=== PATIENT | male | born 1945 | race Caucasian/White ===

== ENCOUNTER 2020-12-09 11:32 | Inpatient (IN) | payer MEDICARE, MEDICAID ==
[~2020-12-09] VITALS: Ht 177.8 cm; Wt 55.8 kg
[2020-12-09] MEDS ORDERED: SODIUM CHLORIDE 0.9% 1,000 ML IV ONE (12:15)
[2020-12-09 12:22] LABS: BASOPHILS % 0.7 % (0.0-2.0); HEMATOCRIT. 58.4 % (42.0-52.0); HEMOGLOBIN. 19.8 g/dL (14.0-18.0); LYMPHOCYTES % 26.9 % (20.0-50.0); MEAN CORPUSCULAR HEMOGLOBIN 31.7 pg (28.0-32.0); MEAN CORPUSCULAR VOLUME 93.8 fL (80.0-94.0); MEAN PLATELET VOLUME 9.1 fl (7.4-10.4); MONOCYTES % 8.3 % (2.0-8.0); NEUTROPHILS % 63.1 % (40.0-76.0); PLATELET 239 x1000/uL (130-400); RED BLOOD CELL COUNT 6.23 mill/uL (4.7-6.1); RED CELL DISTRIBUTION WIDTH 14.4 % (11.6-14.6)
[2020-12-09 12:30] LABS: CHLORIDE 104 mEq/L (98-107)
[2020-12-09 13:55] LABS: INR 1.1; PROTHROMBIN TIME 11.9 sec (9.6-11.0)
[2020-12-09 14:33] LABS: CLARITY URINE CLEAR (CLEAR); COLOR URINE DARK YELLOW (YELLOW); KETONES URINE 3+ (NEGATIVE); LEUKOCYTE ESTERASE URINE NEGATIVE (NEGATIVE); NITRITE URINE NEGATIVE (NEGATIVE); OCCULT BLOOD URINE NEGATIVE (NEGATIVE); PH URINE 5.5 (4.5-8.0); PROTEIN URINE 1+ (NEGATIVE); SPECIFIC GRAVITY URINE 1.028 (1.005-1.030)
[2020-12-09 15:08] LABS: *AMPHETAMINES SCREEN URINE NEGATIVE (NEGATIVE); *BARBITURATES SCREEN URINE NEGATIVE (NEGATIVE); *BENZODIAZEPINES SCREEN URINE NEGATIVE (NEGATIVE); *COCAINE SCREEN URINE NEGATIVE (NEGATIVE); METHADONE URINE SCREEN NEGATIVE (NEGATIVE)
[2020-12-09 15:09] LABS: CANNABINOID URINE SCREEN NEGATIVE (NEGATIVE); OPIATES URINE SCREEN NEGATIVE (NEGATIVE); PHENCYCLIDINE URINE SCREEN NEGATIVE (NEGATIVE)
[2020-12-09] MEDS ORDERED: DOCUSATE SODIUM 100MG CAPSULE PO PRN (16:00)
[2020-12-09] MEDS ORDERED: MAGNESIUM/ALUMINUM HYDROXIDE/SIMETHICONE 30ML UDC PO PRN (16:00)
[2020-12-09] MEDS ORDERED: ACETAMINOPHEN 325MG TABLET PO PRN (16:00)
[2020-12-09] MEDS ORDERED: ONDANSETRON HCL 4MG/2ML INJ IV PRN (16:00)
[2020-12-09] MEDS ORDERED: CLONIDINE 0.1MG TABLET PO PRN (16:00)
[2020-12-09] MEDS ORDERED: LORAZEPAM 2MG/ML CPJ IV PRN (16:00)
[2020-12-09] MEDS ORDERED: LORAZEPAM 2MG/ML CPJ IM ONE (16:15)
[2020-12-09] MEDS: DEXT 5%/0.45% NACL 1000ML 1,000 ML IV SCH (16:15)
[2020-12-09] MEDS: ENOXAPARIN 40MG/0.4ML SYR SUBCUT SCH (17:33)
[2020-12-09 22:00] VITALS: BP 115/72
[2020-12-10] VITALS: BP 115/91
[2020-12-10 04:00] VITALS: BP 126/77
[2020-12-10 07:32] LABS: BASOPHILS % 0.6 % (0.0-2.0); EOSINOPHILS % 1.7 % (0.0-5.0); HEMOGLOBIN. 17.4 g/dL (14.0-18.0); LYMPHOCYTES % 36.8 % (20.0-50.0); MEAN CORPUSCULAR HEMOGLOBIN 31.3 pg (28.0-32.0); MEAN CORPUSCULAR VOLUME 93.7 fL (80.0-94.0); MEAN PLATELET VOLUME 10.1 fl (7.4-10.4); MONOCYTES % 12.8 % (2.0-8.0); NEUTROPHILS % 48.1 % (40.0-76.0); PLATELET 192 x1000/uL (130-400); RED BLOOD CELL COUNT 5.55 mill/uL (4.7-6.1); RED CELL DISTRIBUTION WIDTH 14.6 % (11.6-14.6)
[2020-12-10 07:54] LABS: CHLORIDE 107 mEq/L (98-107)
[2020-12-10 08:00] VITALS: BP 132/91
[2020-12-10 08:04] LABS: LDL CHOLESTEROL 115 mg/dL (5-100)
[2020-12-10 08:06] LABS: HDL CHOLESTEROL 39 mg/dL (40-59); T4 FREE 1.21 ng/dL (0.76-1.46)
[2020-12-10] MEDS: ASPIRIN 81MG EC TABLET PO SCH (08:45)
[2020-12-10] MEDS: FOLIC ACID 1MG TABLET PO SCH (08:45)
[2020-12-10] MEDS: THIAMINE HCL 100MG TABLET PO SCH (08:46)
[2020-12-10] MEDS: MULTIVITAMINS,THER W-MINERALS TABLET PO SCH (08:46)
[2020-12-10] MEDS ORDERED: LORAZEPAM 2MG/ML CPJ IM PRN (10:45)
[2020-12-10] MEDS: LORAZEPAM 2MG/ML CPJ IV PRN (13:57)
[2020-12-10 16:36] VITALS: BP 144/88
[2020-12-10] MEDS: ENOXAPARIN 40MG/0.4ML SYR SUBCUT SCH (17:01)
[2020-12-10] MEDS ORDERED: POTASSIUM CHLORIDE 20MEQ TABLET SR PO NR (18:45)
[2020-12-10] MEDS: DEXT 5%/0.45% NACL 1000ML 1,000 ML IV SCH (19:15)
[2020-12-10 20:00] VITALS: BP 126/78
[2020-12-11] VITALS: BP 139/86
[2020-12-11] MEDS: LORAZEPAM 2MG/ML CPJ IV PRN (00:52)
[2020-12-11 04:00] VITALS: BP 121/71
[2020-12-11 07:48] LABS: BASOPHILS % 0.7 % (0.0-2.0); EOSINOPHILS % 1.6 % (0.0-5.0); HEMATOCRIT. 53.8 % (42.0-52.0); HEMOGLOBIN. 17.8 g/dL (14.0-18.0); MEAN CORPUSCULAR HEMOGLOBIN 31.4 pg (28.0-32.0); MEAN CORPUSCULAR VOLUME 94.8 fL (80.0-94.0); MEAN PLATELET VOLUME 10.3 fl (7.4-10.4); MONOCYTES % 8.9 % (2.0-8.0); NEUTROPHILS % 55.8 % (40.0-76.0); PLATELET 171 x1000/uL (130-400); RED BLOOD CELL COUNT 5.68 mill/uL (4.7-6.1); RED CELL DISTRIBUTION WIDTH 14.8 % (11.6-14.6)
[2020-12-11 07:56] LABS: CHLORIDE 109 mEq/L (98-107)
[2020-12-11 08:00] VITALS: BP 153/92
[2020-12-11] MEDS: DEXT 5%/0.45% NACL 1000ML 1,000 ML IV SCH (08:15)
[2020-12-11] MEDS: FOLIC ACID 1MG TABLET PO SCH (08:52)
[2020-12-11] MEDS: ASPIRIN 81MG EC TABLET PO SCH (08:52)
[2020-12-11] MEDS: THIAMINE HCL 100MG TABLET PO SCH (08:52)
[2020-12-11] MEDS: MULTIVITAMINS,THER W-MINERALS TABLET PO SCH (08:52)
[2020-12-11 11:40] VITALS: BP 149/99
[2020-12-11] MEDS: CLOPIDOGREL 75MG TABLET PO SCH (12:40)
[2020-12-11 16:00] VITALS: BP 121/75
[2020-12-11] MEDS: ENOXAPARIN 40MG/0.4ML SYR SUBCUT SCH (17:09)
[2020-12-11 20:00] VITALS: BP 121/71
[2020-12-11] MEDS: AMLODIPINE 5MG TABLET PO SCH (20:39)
[2020-12-11] MEDS ORDERED: ATORVASTATIN CALCIUM 40MG TABLET PO SCH (21:00)
[2020-12-12] VITALS: BP 134/78
[2020-12-12 04:00] VITALS: BP 129/83
[2020-12-12 08:00] VITALS: BP 133/95
[2020-12-12] MEDS: MULTIVITAMINS,THER W-MINERALS TABLET PO SCH (09:04)
[2020-12-12] MEDS: ASPIRIN 81MG EC TABLET PO SCH (09:04)
[2020-12-12] MEDS: FOLIC ACID 1MG TABLET PO SCH (09:04)
[2020-12-12] MEDS: THIAMINE HCL 100MG TABLET PO SCH (09:04)
[2020-12-12] MEDS: CLOPIDOGREL 75MG TABLET PO SCH (09:04)
[2020-12-12] MEDS: AMLODIPINE 5MG TABLET PO SCH (09:05)
[2020-12-12 12:00] VITALS: BP 106/71
[2020-12-12 15:02] VITALS: BP 106/71
[2020-12-12 16:12] VITALS: BP 118/65
[2020-12-12] MEDS: ENOXAPARIN 40MG/0.4ML SYR SUBCUT SCH (17:21)
== END 2020-12-12 17:26 | DRG 64 ==
LOC: ER 12:03 → 5WST 15:00 → EDBEDREQ 15:06 → EDBEDREQTM 15:06 → ENRESERV 20:36
PROVIDERS: ADMIT Hospitalist; ATTEND Hospitalist
DX: I63.9 Cerebral infarction, unspecified (principal); G93.41 Metabolic encephalopathy; Z68.1 Body mass index [BMI] 19.9 or less, adult; E86.0 Dehydration; R62.7 Adult failure to thrive; I10 Essential (primary) hypertension; F03.90 Unspecified dementia, unspecified severity, without behavioral disturbance, psychotic disturbance, mood disturbance, and anxiety; E78.5 Hyperlipidemia, unspecified; Z20.822 Contact with and (suspected) exposure to COVID-19; H54.7 Unspecified visual loss; R63.6 Underweight
CPT/HCPCS: 36415; 70551; 71045; 80053; 80061; 80305; 81003; 82140; 83605; 84145; 84439; 84443; 84484; 85025; 87426; 93005; 99285; C1893; J1650; J2060; J7030

== ENCOUNTER 2021-06-08 23:05 | Inpatient (IN) | payer MEDICARE, MEDICAID ==
[~2021-06-08] VITALS: Ht 153.7 cm; Wt 53.5 kg
[2021-06-08] MEDS ORDERED: SODIUM CHLORIDE 0.9% 1,000 ML IV ONE (23:45)
[2021-06-09] MEDS ORDERED: OLANZAPINE 10 MG/VIAL IM ONE (00:30)
[2021-06-09 00:34] LABS: BASOPHILS % 0.4 % (0.0-2.0); EOSINOPHILS % 2.8 % (0.0-5.0); HEMATOCRIT. 43.7 % (42.0-52.0); MEAN CORPUSCULAR HEMOGLOBIN 32.4 pg (28.0-32.0); MEAN CORPUSCULAR VOLUME 94.3 fL (80.0-94.0); MEAN PLATELET VOLUME 7.7 fl (7.4-10.4); MONOCYTES % 7.7 % (2.0-8.0); NEUTROPHILS % 60.1 % (40.0-76.0); PLATELET 234 x1000/uL (130-400); RED BLOOD CELL COUNT 4.63 mill/uL (4.7-6.1); RED CELL DISTRIBUTION WIDTH 13.9 % (11.6-14.6)
[2021-06-09 00:38] LABS: CLARITY URINE CLEAR (CLEAR); COLOR URINE YELLOW (YELLOW); KETONES URINE NEGATIVE (NEGATIVE); LEUKOCYTE ESTERASE URINE NEGATIVE (NEGATIVE); NITRITE URINE NEGATIVE (NEGATIVE); OCCULT BLOOD URINE 2+ (NEGATIVE); PH URINE 6.5 (4.5-8.0); PROTEIN URINE NEGATIVE (NEGATIVE); SPECIFIC GRAVITY URINE 1.014 (1.005-1.030)
[2021-06-09 00:42] LABS: CHLORIDE 108 mEq/L (98-107)
[2021-06-09] MEDS ORDERED: HALOPERIDOL LACTATE 5MG/ML VIAL IM ONE (02:15)
[2021-06-09] MEDS ORDERED: MAGNESIUM/ALUMINUM HYDROXIDE/SIMETHICONE 30ML UDC PO PRN (07:00)
[2021-06-09] MEDS ORDERED: ONDANSETRON HCL 4MG/2ML INJ IV PRN (07:00)
[2021-06-09] MEDS: LORAZEPAM 2MG/ML CPJ IV PRN ×3 (08:04→21:34)
[2021-06-09] MEDS: DEXT 5%/0.45% NACL 1000ML 1,000 ML IV SCH ×2 (08:05→21:34)
[2021-06-09] MEDS: ENOXAPARIN 40MG/0.4ML SYR SUBCUT SCH (11:15)
[2021-06-09 16:29] VITALS: BP 124/72
[2021-06-09 18:42] LABS: VITAMIN B12 SERUM 528 pg/mL (211-911)
[2021-06-09 20:00] VITALS: BP 135/66
[2021-06-10] VITALS: BP 133/74
[2021-06-10 04:00] VITALS: BP_SYST 133; BP_SYST 142; BP_DIAS 72; BP_DIAS 85
[2021-06-10 06:12] LABS: CHLORIDE 109 mEq/L (98-107)
[2021-06-10 06:18] LABS: BASOPHILS % 0.7 % (0.0-2.0); HEMATOCRIT. 46.2 % (42.0-52.0); HEMOGLOBIN. 15.6 g/dL (14.0-18.0); LYMPHOCYTES % 22.1 % (20.0-50.0); MEAN CORPUSCULAR VOLUME 95.1 fL (80.0-94.0); MONOCYTES % 8.1 % (2.0-8.0); NEUTROPHILS % 67.1 % (40.0-76.0); PLATELET 233 x1000/uL (130-400); RED BLOOD CELL COUNT 4.86 mill/uL (4.7-6.1); RED CELL DISTRIBUTION WIDTH 13.8 % (11.6-14.6)
[2021-06-10 06:22] LABS: LDL CHOLESTEROL 56 mg/dL (5-100)
[2021-06-10 06:23] LABS: HDL CHOLESTEROL 49 mg/dL (40-59)
[2021-06-10 08:00] VITALS: BP 143/74
[2021-06-10] MEDS: DEXT 5%/0.45% NACL 1000ML 1,000 ML IV SCH ×2 (09:49→21:23)
[2021-06-10] MEDS: ENOXAPARIN 40MG/0.4ML SYR SUBCUT SCH ×2 (09:49→10:01)
[2021-06-10 12:00] VITALS: BP 108/64
[2021-06-10] MEDS: LORAZEPAM 2MG/ML CPJ IV PRN ×2 (15:14→20:42)
[2021-06-10 16:00] VITALS: BP 140/80
[2021-06-10 20:00] VITALS: BP 135/80
[2021-06-10] MEDS ORDERED: HALOPERIDOL LACTATE 5MG/ML VIAL IM PRN (20:00)
[2021-06-10] MEDS: ACETAMINOPHEN 325MG TABLET PO PRN (20:42)
[2021-06-10] MEDS: QUETIAPINE FUMARATE 50MG TABLET PO SCH (20:42)
[2021-06-10] MEDS ORDERED: QUETIAPINE FUMARATE 25MG TABLET PO SCH (21:00)
[2021-06-10] MEDS: MEMANTINE HCL 5MG TABLET PO SCH (21:22)
[2021-06-11] VITALS: BP 115/76
[2021-06-11 08:00] VITALS: BP 141/63
[2021-06-11] MEDS: QUETIAPINE FUMARATE 50MG TABLET PO SCH ×2 (09:13→20:54)
[2021-06-11] MEDS: MEMANTINE HCL 5MG TABLET PO SCH ×2 (09:13→20:54)
[2021-06-11] MEDS: ENOXAPARIN 40MG/0.4ML SYR SUBCUT SCH (09:14)
[2021-06-11 12:00] VITALS: BP 120/72
[2021-06-11] MEDS: DEXT 5%/0.45% NACL 1000ML 1,000 ML IV SCH (14:21)
[2021-06-11] MEDS: LORAZEPAM 2MG/ML CPJ IV PRN (15:51)
[2021-06-11 16:00] VITALS: BP 141/79
[2021-06-11 20:00] VITALS: BP 146/88
[2021-06-12] VITALS: BP 126/76
[2021-06-12 04:00] VITALS: BP 140/77
[2021-06-12] MEDS: DEXT 5%/0.45% NACL 1000ML 1,000 ML IV SCH ×2 (06:12→17:56)
[2021-06-12 08:00] VITALS: BP 162/86
[2021-06-12] MEDS: ENOXAPARIN 40MG/0.4ML SYR SUBCUT SCH (09:00)
[2021-06-12] MEDS: MEMANTINE HCL 5MG TABLET PO SCH ×2 (09:00→21:06)
[2021-06-12] MEDS: QUETIAPINE FUMARATE 50MG TABLET PO SCH ×2 (09:00→21:06)
[2021-06-12] MEDS: CLONIDINE 0.1MG TABLET PO PRN ×2 (09:16→21:06)
[2021-06-12 12:00] VITALS: BP 120/71
[2021-06-12 16:00] VITALS: BP 136/77
[2021-06-12 20:00] VITALS: BP 154/97
[2021-06-12] MEDS: HYDROXYZINE 10 MG TABLET PO SCH (21:06)
[2021-06-13] VITALS: BP 140/71
[2021-06-13] MEDS: DEXT 5%/0.45% NACL 1000ML 1,000 ML IV SCH ×2 (03:47→17:31)
[2021-06-13 04:00] VITALS: BP 94/42
[2021-06-13 08:00] VITALS: BP 140/79
[2021-06-13] MEDS: MEMANTINE HCL 5MG TABLET PO SCH ×2 (08:50→20:16)
[2021-06-13] MEDS: ENOXAPARIN 40MG/0.4ML SYR SUBCUT SCH (08:50)
[2021-06-13] MEDS: QUETIAPINE FUMARATE 50MG TABLET PO SCH ×2 (08:55→20:16)
[2021-06-13 12:00] VITALS: BP 148/76
[2021-06-13 16:00] VITALS: BP 127/70
[2021-06-13 20:00] VITALS: BP 154/79
[2021-06-13] MEDS: HYDROXYZINE 10 MG TABLET PO SCH (20:16)
[2021-06-14] VITALS: BP 130/60
[2021-06-14 04:00] VITALS: BP 136/75
[2021-06-14] MEDS: DEXT 5%/0.45% NACL 1000ML 1,000 ML IV SCH ×2 (05:59→13:16)
[2021-06-14 08:00] VITALS: BP 139/77
[2021-06-14] MEDS: ENOXAPARIN 40MG/0.4ML SYR SUBCUT SCH (10:06)
[2021-06-14] MEDS: MEMANTINE HCL 5MG TABLET PO SCH ×2 (10:06→20:04)
[2021-06-14] MEDS: DOCUSATE SODIUM 100MG CAPSULE PO PRN (10:06)
[2021-06-14] MEDS: QUETIAPINE FUMARATE 50MG TABLET PO SCH ×2 (10:07→20:04)
[2021-06-14 12:00] VITALS: BP 131/70
[2021-06-14 16:00] VITALS: BP 131/67
[2021-06-14 20:00] VITALS: BP 142/79
[2021-06-14] MEDS: HYDROXYZINE 10 MG TABLET PO SCH (20:04)
[2021-06-15] VITALS (7 sets, daily range): BP systolic 114–152; BP diastolic 60–87
[2021-06-15] MEDS: ACETAMINOPHEN 325MG TABLET PO PRN (05:20)
[2021-06-15] MEDS: MEMANTINE HCL 5MG TABLET PO SCH ×2 (10:17→20:50)
[2021-06-15] MEDS: ENOXAPARIN 40MG/0.4ML SYR SUBCUT SCH (10:17)
[2021-06-15] MEDS: QUETIAPINE FUMARATE 50MG TABLET PO SCH ×2 (10:17→20:50)
[2021-06-15] MEDS: DOCUSATE SODIUM 100MG CAPSULE PO PRN (10:17)
[2021-06-15] MEDS: DEXT 5%/0.45% NACL 1000ML 1,000 ML IV SCH (10:18)
[2021-06-15] MEDS: HYDROXYZINE 10 MG TABLET PO SCH (20:50)
== END 2021-06-15 21:00 | DRG 71 ==
LOC: ER 23:05 → MICUSO 06-09 05:05 → 8WST 06-09 15:24
PROVIDERS: ADMIT Hospitalist; ATTEND Hospitalist
DX: G93.40 Encephalopathy, unspecified (principal); E87.2 Acidosis; I69.351 Hemiplegia and hemiparesis following cerebral infarction affecting right dominant side; F03.90 Unspecified dementia, unspecified severity, without behavioral disturbance, psychotic disturbance, mood disturbance, and anxiety; I10 Essential (primary) hypertension; J44.9 Chronic obstructive pulmonary disease, unspecified; Z78.1 Physical restraint status
CPT/HCPCS: 36415; 70551; 71045; 80053; 80061; 81003; 82140; 82607; 82962; 83605; 84145; 84443; 84484; 85025; 93970; 99285; C1893; J1630; J1650; J2060; J3490; J7030

== ENCOUNTER 2024-03-17 03:39 | Emergency (ER) | payer MEDICARE, MEDICAID ==
[~2024-03-17] VITALS: Ht 165.1 cm; Wt 68.0 kg
[2024-03-17 03:47] VITALS: O2SAT 98
[2024-03-17] MEDS ORDERED: ACYC200C31 MT (04:14)
[2024-03-17] MEDS ORDERED: ACET-2708 MT (04:14)
[2024-03-17] MEDS: ACYCLOVIR 400 MG TABLET PO ONE (04:33)
[2024-03-17 09:39] VITALS: BP 127/48; PULSE 84; RESP 12; TEMP 98.6
== END 2024-03-17 10:05 ==
LOC: ER 03:39
DX: B02.9 Zoster without complications (principal); I10 Essential (primary) hypertension; J44.1 Chronic obstructive pulmonary disease with (acute) exacerbation; Z98.890 Other specified postprocedural states; Z86.59 Personal history of other mental and behavioral disorders
CPT/HCPCS: 99283